=== PATIENT | female | born 2000 | race African-American/Black ===

== ENCOUNTER 2021-12-26 11:42 | Emergency (ER) | payer SELFPAY ==
[~2021-12-26] VITALS: Ht 167.6 cm; Wt 75.0 kg
[2021-12-26] MEDS ORDERED: IBUP-2029 MT (11:54)
[2021-12-26] MEDS ORDERED: DOXY100C5 MT (11:54)
[2021-12-26 12:06] VITALS: BP 124/74
== END 2021-12-26 12:08 | disposition home or self-care (01) ==
LOC: ER 11:42
DX: J32.9 Chronic sinusitis, unspecified (principal); Z88.0 Allergy status to penicillin
CPT/HCPCS: 99281

== ENCOUNTER 2022-03-23 15:16 | Emergency (ER) | payer SELFPAY ==
[~2022-03-23] VITALS: Ht 172.7 cm; Wt 95.0 kg
[~2022-03-23 15:16] MED LIST: DOXY100C5 MT; IBUP-2029 MT
[2022-03-23 15:22] VITALS: BP 140/84
== END 2022-03-23 18:39 | disposition left against medical advice (07) ==
LOC: ER 15:16
DX: Z53.21 Procedure and treatment not carried out due to patient leaving prior to being seen by health care provider (principal)